=== PATIENT | male | born 2000 | race Caucasian/White ===

== ENCOUNTER 2024-06-18 10:16 | Emergency (ER) | payer OTHER, SELFPAY ==
[2024-06-18 10:27] VITALS: BP 126/64; PULSE 78; RESP 16; TEMP 37.3; O2SAT 98
--- NOTE | 2024-06-18 11:20 | ED.DENTAL ---
HPI - Dental/Oral General Chief complaint: Dental/Oral Stated complaint: toothpain Time Seen by Provider: 06/18/24 11:13 Source: patient and RN notes reviewed Mode of arrival: ambulatory Limitations: no limitations History of Present Illness HPI Narrative: Patient presents today complaining of a 2 week history of left lower tooth pain. He does report an obvious cavity that has been there for quite some time, but does not currently have a dentist. Denies fever, difficulty breathing or swallowing, trismus. Currently rates his pain 6/10 and has been taking Tylenol and ibuprofen without relief. No recent antibiotic use. Related Data Allergies Allergy/AdvReac Type Severity Reaction Status Date / Time No Known Allergies Allergy Unverified 04/15/17 14:06 Review of Systems Review of Systems: CONSTITUTIONAL: Denies body aches, fever, chills, or sweats. EYES: Denies visual changes, redness, or discharge. ENT: Denies rhinorrhea, congestion, sore throat, or otalgia.+ tooth pain CARDIOVASCULAR: Denies chest pain, palpitations, or edema. RESPIRATORY: Denies cough or dyspnea. GASTROINTESTINAL: Denies abdominal pain, nausea, vomiting, or diarrhea. GENITOURINARY: Denies dysuria or hematuria. SKIN: Denies rash, itching, or wounds. MUSCULOSKELETAL: Denies back pain, joint pain, or myalgia. NEUROLOGIC: Denies headache, numbness, tingling, or weakness. PSYCH: Denies depression or anxiety. PMFSH Comments At time of signature, I have reviewed and agree with nursing past medical, surgical, social and family history unless otherwise noted. Please see nursing chart for further information. There is no relevant family history pertinent to the presenting complaint Exam Narrative: GENERAL: Well-appearing, well-nourished, and in no acute distress. HEAD: Normocephalic, atraumatic. EYES: EOMI. No redness or drainage. Conjunctivae normal. ENT: Mucous membranes pink and moist. No trismus. Patient has large cavities in tooth 18 and 19. No obvious periapical abscess. No sublingual tenderness. No facial swelling noted. NECK: Normal AROM. CHEST: No respiratory distress. EXTREMITIES: Normal range of motion. No edema. SKIN: Warm, dry, no rash. Capillary refill normal. Normal skin turgor. NEURO: No focal deficits. Alert and oriented x3. Gait steady. PSYCH: Normal affect. No signs of depression or anxiety. Course Course Level of Care: Express Care Visit Vital Signs Vital signs: Vital Signs Temperature 99.2 F 06/18/24 10:27 Pulse Rate 78 06/18/24 10:27 Respiratory Rate 16 06/18/24 10:27 Blood Pressure 126/64 06/18/24 10:27 Pulse Oximetry 98 06/18/24 10:27 Oxygen Delivery Room Air 06/18/24 10:27 Temperature 99.2 F 06/18/24 10:27 Pulse Rate 78 06/18/24 10:27 Respiratory Rate 16 06/18/24 10:27 Blood Pressure 126/64 06/18/24 10:27 Pulse Oximetry 98 06/18/24 10:27 Oxygen Delivery Room Air 06/18/24 10:27 Reviewed MDM - Dental/Oral MDM Narrative Medical decision making narrative: Patient will be treated with a course of amoxicillin for presumed infected dental caries. Urged patient to find a dentist for further treatment. ED precautions given. Differential Diagnosis Differential diagnosis: Likely dental caries, toothache, dental abscess and fracture of tooth Critical Care Time Critical Care Time Critical Care Time: No Discharge Plan Discharge Clinical Impression: Infected dental caries Patient Disposition: Home, Self-Care Condition: Stable Instructions: Antibiotic Form, Dental Abscess (ED) Additional Instructions: Please take the amoxicillin as prescribed until gone. Continue Tylenol or ibuprofen if needed for pain. As discussed, please go to the ER immediately with any worsening symptoms such as fever, facial swelling, difficulty breathing or swallowing. Your blood pressure was elevated above 120/80 today at Urgent Care. This puts you above the threshold for fo
== END 2024-06-18 11:27 | disposition home or self-care (01) ==
PROVIDERS: Emergency Provider Nurse Practitioner
DX: K02.9 Dental caries, unspecified (principal)
CPT/HCPCS: 99203; G0463